=== PATIENT | female | born 1950 | race Caucasian/White ===

== ENCOUNTER 2022-05-29 13:41 | Emergency (ER) | payer OTHER ==
[~2022-05-29] VITALS: Ht 147.3 cm; Wt 72.6 kg
--- NOTE | 2022-05-29 14:15 | NUR ---
Pt arrived with c/o abd pain and uti occuring for 3 wks and is resistant to antibiotics prescribed according to her. Pt also complained about dysuria with no traces of blood, clear and tamy in color. Abn gait, weakness of the lower extremities and uses a cane. Assisted pt on the bed for further evaluation, bilateral upper side rails were raised, in low bed position. [facility] is in room for M[facility].
[2022-05-29] MEDS ORDERED: KETOROLAC TROMETHAMINE 15 MG INJ ONE (14:22)
--- NOTE | 2022-05-29 14:24 | NUR ---
Pt brought her medications in the ER, stated that after the ERMD told her to medicate herself with atb prescribed for her uti, she is having chest pain at rest, rated 9/10, radiating to the back of her throat, stated that her lips are swelling and feels a tingling sensation of the tongue. Infromed Dr. Foy about pt's concern. Seen by . EKG is performed.
[2022-05-29] MEDS ORDERED: KETOROLAC TROMETHAMINE 15 MG INJ IM ONE (14:30)
[2022-05-29 14:45] LABS: *BILIRUBIN,URIN NEGATIVE (NEGATIVE); *BLOOD, URINE NEGATIVE (NEGATIVE); *CLARITY,URINE CLEAR (CLEAR); *COLOR,URINE YELLOW (YELLOW); *KETONES,URINE NEGATIVE (NEGATIVE); *UROBILINOGEN,URINE 0.2 E.U./dl (NORMAL); LEUKOCYTE ESTERASE ,URINE TRACE (NEGATIVE); NITRITE, URINE NEGATIVE (NEGATIVE); UGLUCOSE NEGATIVE (NEGATIVE)
[2022-05-29 14:50] LABS: POTASSIUM 4.1 mmol/L (3.5-5.1)
[2022-05-29] MEDS ORDERED: TRAZ-257 PO (14:53)
[2022-05-29] MEDS ORDERED: VITAMIN D PO (14:53)
[2022-05-29] MEDS ORDERED: SUMATRIPTAN PO (14:53)
[2022-05-29] MEDS ORDERED: PANT40TA49 PO (14:53)
[2022-05-29] MEDS ORDERED: OXYB5TAB16 PO (14:53)
[2022-05-29] MEDS ORDERED: ONDA4TAB5 PO (14:53)
[2022-05-29] MEDS ORDERED: [UNRECOGNIZED DRUG - OTHER] PO (14:53)
[2022-05-29] MEDS ORDERED: DOCU250C14 PO (14:53)
[2022-05-29] MEDS ORDERED: SUCR1TAB PO (14:53)
[2022-05-29] MEDS ORDERED: BENA20TA9 PO (14:53)
[2022-05-29] MEDS ORDERED: SIMV-46 PO (14:53)
[2022-05-29] MEDS ORDERED: HYDR-3980 PO (14:53)
[2022-05-29] MEDS ORDERED: TRIA1CAP6 PO (14:53)
[2022-05-29] MEDS ORDERED: DIAZ10TA PO (14:53)
[2022-05-29 14:56] LABS: BILIRUBIN,DIRECT 0.1 mg/dL (0.0-0.2); BILIRUBIN,TOTAL 0.7 mg/dL (0.2-1.0); TOTAL PROTEIN, SERUM 7.5 g/dL (6.4-8.2)
[2022-05-29 14:57] LABS: HEMATOCRIT 42.7 % (31.2-41.9); MEAN CORPUSCULAR HEMOGLOBIN 31.4 uug (24.7-32.8); MEAN CORPUSCULAR VOLUME 92.5 fL (75.5-95.3); PLATELET COUNT (AUTO) 85 K/uL (179-408)
[2022-05-29 15:12] LABS: RBC,URINE NONE SEEN /HPF (0-3); SQUAMOUS EPITHELIAL CELL,UR FEW /HPF (NONE SEEN); WBC,URINE 0-3 /HPF (0-3)
[2022-05-29 15:13] LABS: BACTERIA,URINE NONE SEEN /HPF (NONE SEEN)
[2022-05-29 15:41] LABS: BAND % (MANUAL) 1 % (0-10); EOSINOPHILS % (MANUAL) 1 % (0-8); LYMPHOCYTES % (MANUAL) 23 % (20-40); MONOCYTES % (MANUAL) 8 % (2-10); NEUTROPHILS % (MANUAL) 67 % (42-75)
[2022-05-29] MEDS ORDERED: PHENAZOPYRIDINE HCL 100 MG TABLET ONE (16:42)
[2022-05-29] MEDS ORDERED: PHENAZOPYRIDINE HCL 100 MG TABLET PO ONE (16:45)
[2022-05-29 16:48] VITALS: BP 134/86
--- NOTE | 2022-05-29 16:48 | NUR ---
Patient discharged to home in stable condition. Written and verbal after care instructions given. Patient verbalizes understanding of instructions. Stressed follow up or return to ER for worsening s/s.
== END 2022-05-29 16:49 | disposition home or self-care (01) ==
LOC: ER 13:41
DX: G89.29 Other chronic pain (principal); R10.30 Lower abdominal pain, unspecified; R30.0 Dysuria; K21.9 Gastro-esophageal reflux disease without esophagitis; Z87.440 Personal history of urinary (tract) infections; E78.00 Pure hypercholesterolemia, unspecified; Z88.0 Allergy status to penicillin; Z88.2 Allergy status to sulfonamides
CPT/HCPCS: 99285; 74176; 80076; 80048; 81001; 83690; 85025; 87086; 84484; 36415; 93005; 96372; 85007; J1885; 70030-TC; A4663

== ENCOUNTER → 2023-03-01 | Emergency (ER) | payer OTHER ==
[~2023-03-01] VITALS: Ht 147.3 cm; Wt 62.1 kg
[~2023-03-01] MED LIST: BENA20TA9 PO; DIAZ10TA PO; DOCU250C14 PO; HYDR-3980 PO; MORPHINE SULFATE 2 MG/1 ML DISP.SYRIN IV ONE; MORPHINE SULFATE 4 MG/1 ML DISP.SYRIN ONE; ONDA4TAB5 PO; ONDANSETRON 4 MG/2 ML VIAL IV ONE; ONDANSETRON 4 MG/2 ML VIAL ONE; OXYB5TAB16 PO; PANT40TA49 PO; SIMV-46 PO; SUCR1TAB PO; SUMATRIPTAN PO; TRAZ-257 PO; TRIA1CAP6 PO; VITAMIN D PO; [UNRECOGNIZED DRUG - OTHER] PO
--- NOTE | 2023-03-01 17:29 | NUR ---
Patient resting in bed, informed of plan of care, no s/s of any distress noted awaiting MD exam.
--- NOTE | 2023-03-01 18:02 | NUR ---
ER provider at bedside for exam.
[2023-03-01 18:17] LABS: HEMATOCRIT 38.8 % (31.2-41.9); MEAN CORPUSCULAR HEMOGLOBIN 30.3 uug (24.7-32.8); MEAN CORPUSCULAR VOLUME 91.6 fL (75.5-95.3); PLATELET COUNT (AUTO) 79 K/uL (179-408)
--- NOTE | 2023-03-01 18:21 | NUR ---
#20g established in right ac, blood collected and sent to lab, bedside EKG done for MD review.
[2023-03-01 18:27] LABS: *BILIRUBIN,URIN NEGATIVE (NEGATIVE); *BLOOD, URINE NEGATIVE (NEGATIVE); *CLARITY,URINE CLEAR (CLEAR); *COLOR,URINE YELLOW (YELLOW); *KETONES,URINE NEGATIVE (NEGATIVE); *UROBILINOGEN,URINE 0.2 E.U./dl (NORMAL); LEUKOCYTE ESTERASE ,URINE NEGATIVE (NEGATIVE); NITRITE, URINE NEGATIVE (NEGATIVE); UGLUCOSE NEGATIVE (NEGATIVE)
[2023-03-01 18:28] LABS: *OCCULT BLOOD STOOL NEGATIVE (NEGATIVE)
--- NOTE | 2023-03-01 18:34 | NUR ---
Patient has been medicated as per order, going off unit to CT via wheel chair.
[2023-03-01 18:45] LABS: ALANINE AMINOTRANSFERASE 21 U/L (14-59); ALKALINE PHOSPHATASE 70 U/L (50-136); ASPARTATE AMINOTRANSFERASE 7 U/L (15-37); BILIRUBIN,DIRECT 0.1 mg/dL (0.0-0.2); BILIRUBIN,TOTAL 0.3 mg/dL (0.2-1.0); CARBON DIOXIDE 28 mmol/L (21-32); CHLORIDE 106 mmol/L (98-107); CREATININE 0.9 mg/dL (0.6-1.3); LIPASE 11 U/L (73-393); POTASSIUM 3.7 mmol/L (3.5-5.1); TOTAL PROTEIN, SERUM 6.6 g/dL (6.4-8.2); UREA NITROGEN, BLOOD 16 mg/dL (7-18)
--- NOTE | 2023-03-01 18:53 | NUR ---
Patient has returned from CT, awaiting results.
[2023-03-01 20:22] VITALS: O2SAT 100
--- NOTE | 2023-03-01 20:26 | NUR ---
DCI given to patient. Patient acknowledges & understand DCI. Patient ambulated OTD in stable condition.
== END | disposition home or self-care (01) ==
LOC: ER 16:55
DX: K62.89 Other specified diseases of anus and rectum (principal); G43.909 Migraine, unspecified, not intractable, without status migrainosus; K21.9 Gastro-esophageal reflux disease without esophagitis; E78.5 Hyperlipidemia, unspecified; R07.89 Other chest pain; Z88.0 Allergy status to penicillin; Z88.2 Allergy status to sulfonamides; Z88.1 Allergy status to other antibiotic agents; Z79.899 Other long term (current) drug therapy
CPT/HCPCS: 99285; 74176; 96374; 71045; 96375; 82270; 80076; 80048; 81003; 83690; 85025; 85651; 85730; 84484; 36415; 93005; 96376; J2405; J2270 ×2; A4663

== ENCOUNTER 2023-04-10 22:41 | Inpatient (IN) | payer OTHER ==
[~2023-04-10] VITALS: Ht 147.3 cm; Wt 65.8 kg
[~2023-04-10 22:41] MED LIST changes: -BENA20TA9 PO; -MORPHINE SULFATE 2 MG/1 ML DISP.SYRIN IV ONE; -MORPHINE SULFATE 4 MG/1 ML DISP.SYRIN ONE; -ONDANSETRON 4 MG/2 ML VIAL IV ONE; -ONDANSETRON 4 MG/2 ML VIAL ONE; -SUCR1TAB PO; -TRIA1CAP6 PO; -[UNRECOGNIZED DRUG - OTHER] PO
[2023-04-10] MEDS ORDERED: ASPIRIN 81 MG TAB.CHEW PO ONE (23:00)
[2023-04-10] MEDS ORDERED: HYDROMORPHONE HCL 2 MG TABLET PO ONE (23:15)
[2023-04-10] MEDS ORDERED: ASPIRIN 81 MG TAB.CHEW ONE (23:26)
[2023-04-10] MEDS ORDERED: HYDROMORPHONE HCL 2 MG TABLET ONE (23:26)
[2023-04-10 23:28] LABS: BASOPHILS % (AUTO) 0.3 % (0.0-2.0); DIFFERENTIAL COMMENT 1; EOSINOPHILS % (AUTO) 0.3 % (0.0-7.0); HEMATOCRIT 38.6 % (31.2-41.9); LYMPHOCYTES # (AUTO) 1.1 K/uL (0.8-4.8); LYMPHOCYTES % (AUTO) 12.7 % (20.5-51.5); MEAN CORPUSCULAR HEMOGLOBIN 31.3 uug (24.7-32.8); MEAN CORPUSCULAR HGB CONC 34 g/dL (32.3-35.6); MEAN CORPUSCULAR VOLUME 92.9 fL (75.5-95.3); MONOCYTES # (AUTO) 0.6 K/uL (0.1-1.30); MONOCYTES % (AUTO) 6.8 % (0.0-11.0); NEUTROPHILS # (AUTO) 6.7 K/uL (1.8-8.9); NEUTROPHILS % (AUTO) 79.9 % (38.5-71.5); PLATELET COUNT (AUTO) 95 K/uL (179-408); RED BLOOD CELL COUNT(AUTO) 4.16 MIL/uL (3.63-4.92); RED CELL DISTRIBUTION WIDTH 13.7 % (12.3-17.7); WHITE BLOOD COUNT (AUTO) 8.4 K/uL (3.8-11.8)
[2023-04-10 23:36] LABS: CALCIUM 9.4 mg/dL (8.5-10.1); CARBON DIOXIDE 27 mmol/L (21-32); CHLORIDE 103 mmol/L (98-107); CREATININE 0.9 mg/dL (0.6-1.3); GLUCOSE 127 mg/dL (74-106); POTASSIUM 4.7 mmol/L (3.5-5.1); SODIUM SERUM 138 mmol/L (136-145); UREA NITROGEN, BLOOD 20 mg/dL (7-18)
[2023-04-10 23:52] LABS: ALANINE AMINOTRANSFERASE 61 U/L (14-59); ALBUMIN 3.6 g/dL (3.4-5.0); ALKALINE PHOSPHATASE 161 U/L (50-136); ASPARTATE AMINOTRANSFERASE 137 U/L (15-37); BILIRUBIN,DIRECT < 0.1 mg/dL (0.0-0.2); BILIRUBIN,TOTAL 0.7 mg/dL (0.2-1.0); NT-PRO BNP 849 pg/mL (0-125); TOTAL PROTEIN, SERUM 7.4 g/dL (6.4-8.2)
[2023-04-11 00:48] LABS: EOSINOPHILS % (MANUAL) 1 % (0-8); LYMPHOCYTES % (MANUAL) 13 % (20-40); MONOCYTES % (MANUAL) 4 % (2-10); NEUTROPHILS % (MANUAL) 82 % (42-75); PLATELET ESTIMATE MARKED DECREASED
[2023-04-11] MEDS ORDERED: HYDROMORPHONE HCL 2 MG TABLET PO ONE (01:00)
[2023-04-11] MEDS ORDERED: HYDROMORPHONE HCL 2 MG TABLET ONE (01:06)
[2023-04-11] MEDS ORDERED: ENOXAPARIN SODIUM 80 MG/0.8 ML DISP.SYRIN SQ ONE ×2 (01:45→01:48)
[2023-04-11] MEDS ORDERED: FUROSEMIDE 20 MG/2 ML VIAL ONE (02:22)
[2023-04-11] MEDS ORDERED: NITROGLYCERIN OINT 1 GM PACKET TP ONE ×2 (02:22→02:30)
[2023-04-11] MEDS ORDERED: FUROSEMIDE 20 MG/2 ML VIAL IV ONE (02:30)
[2023-04-11] MEDS ORDERED: LORAZEPAM 0.5 MG TABLET ONE (04:36)
[2023-04-11] MEDS ORDERED: LORAZEPAM 0.5 MG TABLET PO ONE (04:45)
[2023-04-11] MEDS: PANTOPRAZOLE SODIUM 40 MG TABLET.DR PO SCH ×2 (07:00→08:39)
[2023-04-11] MEDS ORDERED: MAGNESIUM HYDROXIDE 30 ML LIQUID UDC PO PRN (07:00)
[2023-04-11] MEDS ORDERED: REMEDY ESSENTIAL ZINC PASTE 113 GM TP PRN (07:00)
[2023-04-11] MEDS: ENOXAPARIN SODIUM 40 MG/0.4 ML DISP.SYRIN SQ SCH ×2 (07:00→08:38)
[2023-04-11] MEDS ORDERED: IV NORMAL SALINE 250 ML IV ONE (07:14)
[2023-04-11] MEDS ORDERED: IOHEXOL 350 100 ML INFUS..BTL ONE (07:14)
[2023-04-11] MEDS: ACETAMINOPHEN 325 MG TABLET PO PRN ×2 (07:31→09:03)
[2023-04-11] MEDS ORDERED: ENOXAPARIN SODIUM 40 MG/0.4 ML DISP.SYRIN SQ ONE (08:36)
[2023-04-11] MEDS ORDERED: ACETAMINOPHEN 325 MG TABLET ONE (08:37)
[2023-04-11] MEDS ORDERED: PANTOPRAZOLE SODIUM 40 MG TABLET.DR PO ONE (08:37)
[2023-04-11] MEDS ORDERED: FUROSEMIDE 40 MG/4 ML VIAL ONE (08:38)
[2023-04-11] MEDS ORDERED: FUROSEMIDE 40 MG/4 ML VIAL IV SCH (09:00)
[2023-04-11] MEDS: ASPIRIN 81 MG TAB.CHEW PO SCH (09:02)
[2023-04-11] MEDS ORDERED: DOCUSATE SODIUM 250 MG CAPSULE PO PRN (11:45)
[2023-04-11] MEDS ORDERED: HYDROCODONE/APAP 10-325 MG TABLET ONE (12:16)
[2023-04-11] MEDS: HYDROCODONE/APAP 10-325 MG TABLET PO PRN ×2 (12:21→22:50)
[2023-04-11] MEDS: OXYBUTYNIN CHLORIDE 5 MG TABLET PO SCH (16:34)
[2023-04-11] MEDS ORDERED: OXYBUTYNIN CHLORIDE 5 MG TABLET ONE (16:36)
[2023-04-11] MEDS ORDERED: ONDANSETRON 4 MG/2 ML VIAL IV PRN (17:30)
[2023-04-11] MEDS ORDERED: CEFTRIAXONE 1 G in IV DEXTROSE 5% 50 ML IV SCH (17:30)
[2023-04-11] MEDS ORDERED: ONDANSETRON 4 MG/2 ML VIAL ONE (17:35)
[2023-04-11] MEDS ORDERED: CEFTRIAXONE /D5W 50ML IVPB **ER PYXIS IV ONE (17:36)
[2023-04-11] MEDS: ONDANSETRON 4 MG/2 ML VIAL IV PRN (17:43)
[2023-04-11 21:23] VITALS: BP 145/97; TEMP 98.1; O2SAT 98
[2023-04-11] MEDS: SIMVASTATIN 20 MG TABLET PO SCH (22:41)
[2023-04-11] MEDS: TRAZODONE 100 MG TABLET PO SCH (22:41)
[2023-04-12 00:15] VITALS: BP 130/73; TEMP 98.1; O2SAT 96
[2023-04-12] MEDS: DIAZEPAM 10 MG TABLET PO PRN ×2 (00:38→11:50)
[2023-04-12 04:20] VITALS: BP 119/66; TEMP 97.7; O2SAT 92
[2023-04-12 07:20] LABS: BASOPHILS % (AUTO) 0.4 % (0.0-2.0); EOSINOPHILS % (AUTO) 0.9 % (0.0-7.0); HEMATOCRIT 36.9 % (31.2-41.9); HEMOGLOBIN 12.5 g/dL (10.9-14.3); LYMPHOCYTES # (AUTO) 1.1 K/uL (0.8-4.8); LYMPHOCYTES % (AUTO) 19.9 % (20.5-51.5); MEAN CORPUSCULAR HEMOGLOBIN 31.3 uug (24.7-32.8); MEAN CORPUSCULAR HGB CONC 34 g/dL (32.3-35.6); MEAN CORPUSCULAR VOLUME 92.2 fL (75.5-95.3); MONOCYTES # (AUTO) 0.5 K/uL (0.1-1.30); MONOCYTES % (AUTO) 8.4 % (0.0-11.0); NEUTROPHILS # (AUTO) 3.8 K/uL (1.8-8.9); NEUTROPHILS % (AUTO) 70.4 % (38.5-71.5); PLATELET COUNT (AUTO) 87 K/uL (179-408); RED CELL DISTRIBUTION WIDTH 13.9 % (12.3-17.7); WHITE BLOOD COUNT (AUTO) 5.4 K/uL (3.8-11.8)
[2023-04-12 07:33] LABS: DIFFERENTIAL COMMENT 1
[2023-04-12 07:35] LABS: ALANINE AMINOTRANSFERASE 58 U/L (14-59); ALBUMIN 3.4 g/dL (3.4-5.0); ALKALINE PHOSPHATASE 138 U/L (50-136); ASPARTATE AMINOTRANSFERASE 30 U/L (15-37); BILIRUBIN,DIRECT 0.1 mg/dL (0.0-0.2); BILIRUBIN,TOTAL 0.5 mg/dL (0.2-1.0); CALCIUM 9.7 mg/dL (8.5-10.1); CARBON DIOXIDE 29 mmol/L (21-32); CHLORIDE 100 mmol/L (98-107); GLUCOSE 106 mg/dL (74-106); MAGNESIUM 1.7 mg/dL (1.8-2.4); PHOSPHOROUS 4.7 mg/dL (2.5-4.9); POTASSIUM 3.2 mmol/L (3.5-5.1); SODIUM SERUM 140 mmol/L (136-145); TOTAL PROTEIN, SERUM 6.8 g/dL (6.4-8.2); UREA NITROGEN, BLOOD 18 mg/dL (7-18)
[2023-04-12] MEDS: OXYBUTYNIN CHLORIDE 5 MG TABLET PO SCH ×2 (08:22→17:19)
[2023-04-12] MEDS: HYDROCODONE/APAP 10-325 MG TABLET PO PRN ×2 (08:24→17:21)
[2023-04-12] MEDS ORDERED: ENOXAPARIN SODIUM 40 MG/0.4 ML DISP.SYRIN SQ SCH (09:00)
[2023-04-12] MEDS ORDERED: PANTOPRAZOLE SODIUM 40 MG TABLET.DR PO SCH (09:00)
[2023-04-12] MEDS ORDERED: POTASSIUM CHLORIDE 50 ML IV SCH (09:00)
[2023-04-12] MEDS ORDERED: POTASSIUM CHLORIDE 20 MEQ POWDER PACKET GT ONE (09:00)
[2023-04-12] MEDS ORDERED: POTASSIUM CHLORIDE 20 MEQ TAB.PRT.SR PO ONE ×2 (09:30→12:00)
[2023-04-12] MEDS: MAGNESIUM SULFATE/D5W 100 ML IV SCH ×2 (10:23→11:43)
[2023-04-12] MEDS: SUMATRIPTAN SUCCINATE 50 MG TABLET PO PRN (10:35)
[2023-04-12] MEDS: CEphaleXIN 500 MG CAPSULE PO SCH ×3 (11:43→23:12)
[2023-04-12 11:49] VITALS: BP 118/77; TEMP 97.8; O2SAT 96
[2023-04-12] MEDS ORDERED: LOSA100T31 PO (14:30)
[2023-04-12] MEDS ORDERED: AMLO-212 PO (14:30)
[2023-04-12] MEDS: ASPIRIN 81 MG TAB.CHEW PO SCH (15:26)
[2023-04-12 15:45] VITALS: BP 156/70; TEMP 98.6; O2SAT 94
[2023-04-12] MEDS: AMLODIPINE 5 MG TABLET PO SCH (17:21)
[2023-04-12] MEDS: SIMVASTATIN 20 MG TABLET PO SCH (20:01)
[2023-04-12] MEDS: TRAZODONE 100 MG TABLET PO SCH (20:01)
[2023-04-12] MEDS: ONDANSETRON 4 MG/2 ML VIAL IV PRN (20:08)
[2023-04-12 21:23] VITALS: BP 137/57; TEMP 98.2
[2023-04-13] MEDS: DIAZEPAM 10 MG TABLET PO PRN ×2 (00:28→13:21)
[2023-04-13 05:23] VITALS: BP 132/67; TEMP 98.2; O2SAT 99
[2023-04-13] MEDS: CEphaleXIN 500 MG CAPSULE PO SCH ×3 (05:25→17:21)
[2023-04-13] MEDS: PANTOPRAZOLE SODIUM 40 MG TABLET.DR PO SCH (06:02)
[2023-04-13 07:33] LABS: BASOPHILS % (AUTO) 0.4 % (0.0-2.0); EOSINOPHILS # (AUTO) 0.1 K/uL (0.0-0.7); EOSINOPHILS % (AUTO) 1.1 % (0.0-7.0); HEMOGLOBIN 12.5 g/dL (10.9-14.3); LYMPHOCYTES # (AUTO) 1.4 K/uL (0.8-4.8); LYMPHOCYTES % (AUTO) 26.4 % (20.5-51.5); MEAN CORPUSCULAR HEMOGLOBIN 31.4 uug (24.7-32.8); MEAN CORPUSCULAR HGB CONC 34 g/dL (32.3-35.6); MEAN CORPUSCULAR VOLUME 92.8 fL (75.5-95.3); MONOCYTES # (AUTO) 0.5 K/uL (0.1-1.30); NEUTROPHILS # (AUTO) 3.4 K/uL (1.8-8.9); NEUTROPHILS % (AUTO) 63.1 % (38.5-71.5); PLATELET COUNT (AUTO) 91 K/uL (179-408); RED BLOOD CELL COUNT(AUTO) 3.98 MIL/uL (3.63-4.92); RED CELL DISTRIBUTION WIDTH 13.9 % (12.3-17.7); WHITE BLOOD COUNT (AUTO) 5.4 K/uL (3.8-11.8)
[2023-04-13 07:39] LABS: DIFFERENTIAL COMMENT 1
[2023-04-13 07:45] LABS: CALCIUM 9.3 mg/dL (8.5-10.1); CARBON DIOXIDE 29 mmol/L (21-32); CHLORIDE 105 mmol/L (98-107); CREATININE 1.1 mg/dL (0.6-1.3); GLUCOSE 134 mg/dL (74-106); MAGNESIUM 1.9 mg/dL (1.8-2.4); PHOSPHOROUS 3.5 mg/dL (2.5-4.9); POTASSIUM 4.1 mmol/L (3.5-5.1); SODIUM SERUM 142 mmol/L (136-145); UREA NITROGEN, BLOOD 22 mg/dL (7-18)
[2023-04-13] MEDS: OXYBUTYNIN CHLORIDE 5 MG TABLET PO SCH ×2 (08:48→17:21)
[2023-04-13] MEDS: AMLODIPINE 5 MG TABLET PO SCH ×2 (08:48→17:21)
[2023-04-13] MEDS: ASPIRIN 81 MG TAB.CHEW PO SCH (08:48)
[2023-04-13] MEDS: HYDROCODONE/APAP 10-325 MG TABLET PO PRN (08:49)
[2023-04-13] MEDS ORDERED: LOSARTAN POTASSIUM 50 MG TABLET PO SCH (09:00)
[2023-04-13] MEDS: SUMATRIPTAN SUCCINATE 50 MG TABLET PO PRN (11:09)
[2023-04-13 11:56] VITALS: BP 156/82; TEMP 97.5; O2SAT 97
[2023-04-13] MEDS ORDERED: PANT40TA49 PO (12:23)
[2023-04-13] MEDS ORDERED: CEPH500T PO (12:25)
[2023-04-13 15:54] VITALS: BP 165/93; TEMP 98; O2SAT 98
[2023-04-13 18:00] VITALS: BP 159/76
== END 2023-04-13 18:42 | disposition home or self-care (01) | DRG 193 ==
LOC: ER 22:42 → TRANSITION 04-11 09:10 → TELE3 04-11 20:46 → MEDSURG3 04-12 10:00
PROVIDERS: ADMIT Nurse Practitioner Acute Care; ATTEND Nurse Practitioner Acute Care
DX: J15.9 Unspecified bacterial pneumonia (principal); I50.33 Acute on chronic diastolic (congestive) heart failure; K21.9 Gastro-esophageal reflux disease without esophagitis; I11.0 Hypertensive heart disease with heart failure; E66.9 Obesity, unspecified; K83.8 Other specified diseases of biliary tract; E78.00 Pure hypercholesterolemia, unspecified; E04.1 Nontoxic single thyroid nodule; G47.00 Insomnia, unspecified; G89.4 Chronic pain syndrome; K59.00 Constipation, unspecified; Z88.0 Allergy status to penicillin; Z88.2 Allergy status to sulfonamides; E78.5 Hyperlipidemia, unspecified; R59.0 Localized enlarged lymph nodes; R74.01 Elevation of levels of liver transaminase levels; R10.9 Unspecified abdominal pain; Z68.30 Body mass index [BMI] 30.0-30.9, adult
CPT/HCPCS: 36415; 70030-TC; 71045; 71275; 83690; 83735; 84100; 84484; 85025; 85730; 93005; 93307; A4663; G0378; J0696; J1650; J1940; J2405; J3475; Q9967

== ENCOUNTER 2023-04-22 12:39 | Emergency (ER) | payer OTHER ==
[~2023-04-22] VITALS: Ht 149.9 cm; Wt 66.2 kg
[~2023-04-22 12:39] MED LIST changes: +AMLO-212 PO; +CEPH500T PO; +LOSA100T31 PO; -VITAMIN D PO
[2023-04-22] MEDS ORDERED: MORPHINE SULFATE 2 MG/1 ML DISP.SYRIN IV ONE (13:15)
[2023-04-22] MEDS ORDERED: MORPHINE SULFATE 4 MG/1 ML DISP.SYRIN ONE (13:40)
[2023-04-22 13:53] LABS: BASOPHILS % (AUTO) 0.1 % (0.0-2.0); EOSINOPHILS % (AUTO) 0.2 % (0.0-7.0); HEMOGLOBIN 12.9 g/dL (10.9-14.3); LYMPHOCYTES % (AUTO) 9.5 % (20.5-51.5); MEAN CORPUSCULAR HEMOGLOBIN 31.4 uug (24.7-32.8); MEAN CORPUSCULAR HGB CONC 34 g/dL (32.3-35.6); MEAN CORPUSCULAR VOLUME 92.5 fL (75.5-95.3); MONOCYTES # (AUTO) 0.4 K/uL (0.1-1.30); MONOCYTES % (AUTO) 4.1 % (0.0-11.0); NEUTROPHILS # (AUTO) 9.3 K/uL (1.8-8.9); NEUTROPHILS % (AUTO) 86.1 % (38.5-71.5); PLATELET COUNT (AUTO) 87 K/uL (179-408); RED BLOOD CELL COUNT(AUTO) 4.11 MIL/uL (3.63-4.92); RED CELL DISTRIBUTION WIDTH 13.8 % (12.3-17.7); WHITE BLOOD COUNT (AUTO) 10.8 K/uL (3.8-11.8)
[2023-04-22] MEDS ORDERED: IV NORMAL SALINE 250 ML IV ONE ×2 (14:15→15:31)
[2023-04-22] MEDS ORDERED: IOHEXOL 300MG/ML 100 ML INFUS..BTL ONE ×2 (14:15→15:30)
[2023-04-22] MEDS ORDERED: SWABABLE VALVE TRANSFER SET EA MC ONE ×2 (14:15→15:31)
[2023-04-22 14:19] LABS: ALANINE AMINOTRANSFERASE 17 U/L (14-59); ALBUMIN 3.8 g/dL (3.4-5.0); ALKALINE PHOSPHATASE 87 U/L (50-136); ASPARTATE AMINOTRANSFERASE 7 U/L (15-37); BILIRUBIN,DIRECT 0.1 mg/dL (0.0-0.2); BILIRUBIN,TOTAL 0.6 mg/dL (0.2-1.0); CALCIUM 9.6 mg/dL (8.5-10.1); CARBON DIOXIDE 26 mmol/L (21-32); CHLORIDE 104 mmol/L (98-107); GLUCOSE 124 mg/dL (74-106); LIPASE 17 U/L (73-393); NT-PRO BNP 401 pg/mL (0-125); POTASSIUM 3.5 mmol/L (3.5-5.1); SODIUM SERUM 141 mmol/L (136-145); TOTAL PROTEIN, SERUM 6.8 g/dL (6.4-8.2); UREA NITROGEN, BLOOD 19 mg/dL (7-18)
[2023-04-22] MEDS ORDERED: MORPHINE SULFATE 4 MG/1 ML DISP.SYRIN IV ONE (15:45)
[2023-04-22 16:20] LABS: *BILIRUBIN,URIN NEGATIVE (NEGATIVE); *CLARITY,URINE CLEAR (CLEAR); *COLOR,URINE YELLOW (YELLOW); *KETONES,URINE NEGATIVE (NEGATIVE); *PROTEIN,URINE NEGATIVE (NEGATIVE); *UROBILINOGEN,URINE 0.2 E.U./dl (NORMAL); LEUKOCYTE ESTERASE ,URINE NEGATIVE (NEGATIVE); NITRITE, URINE NEGATIVE (NEGATIVE); PH,URINE 7.5 (5.0-8.0); UGLUCOSE NEGATIVE (NEGATIVE)
[2023-04-22 16:24] LABS: *BLOOD, URINE TRACE (NEGATIVE)
[2023-04-22 16:40] LABS: BACTERIA,URINE FEW /HPF (NONE SEEN); RBC,URINE 0-3 /HPF (0-3); SQUAMOUS EPITHELIAL CELL,UR MODERATE /HPF (NONE SEEN); WBC,URINE NONE SEEN /HPF (0-3)
[2023-04-22 16:45] VITALS: O2SAT 98
[2023-04-22] MEDS ORDERED: DICY10CA13 PO (16:54)
== END 2023-04-22 17:32 | disposition home or self-care (01) ==
LOC: ER 12:39
DX: S30.1XXA Contusion of abdominal wall, initial encounter (principal); R10.31 Right lower quadrant pain; R07.89 Other chest pain; G43.909 Migraine, unspecified, not intractable, without status migrainosus; I50.9 Heart failure, unspecified; K21.9 Gastro-esophageal reflux disease without esophagitis; E78.5 Hyperlipidemia, unspecified; Z88.0 Allergy status to penicillin; Z88.2 Allergy status to sulfonamides; Z88.1 Allergy status to other antibiotic agents; Z79.899 Other long term (current) drug therapy; X58.XXXA Exposure to other specified factors, initial encounter; Y93.89 Activity, other specified; Y92.89 Other specified places as the place of occurrence of the external cause; Y99.8 Other external cause status
CPT/HCPCS: 99285; 74177; 96374; 71045; 80076; 80048; 81001; 83880; 83690; 85025; 85610; 84484 ×2; 36415; 93005; 96376; Q9967 ×2; J2270; A4663

== ENCOUNTER 2023-06-22 13:00 | Emergency (ER) | payer OTHER ==
[~2023-06-22] VITALS: Ht 149.9 cm; Wt 62.1 kg
[~2023-06-22 13:00] MED LIST changes: +DICY10CA13 PO
[2023-06-22] MEDS ORDERED: MORPHINE SULFATE 2 MG/1 ML DISP.SYRIN IV ONE ×2 (13:30→15:45)
[2023-06-22] MEDS ORDERED: ONDANSETRON 4 MG/2 ML VIAL IV ONE (13:30)
[2023-06-22] MEDS ORDERED: IV NORMAL SALINE 1000 ML BAG IV ONE (13:30)
[2023-06-22] MEDS ORDERED: MORPHINE SULFATE 4 MG/1 ML DISP.SYRIN ONE (13:40)
[2023-06-22] MEDS ORDERED: ONDANSETRON 4 MG/2 ML VIAL ONE (13:40)
[2023-06-22 13:42] LABS: BASOPHILS # (AUTO) 0.2 K/UL (0.0-0.2); BASOPHILS % (AUTO) 2.8 % (0.0-2.0); EOSINOPHILS % (AUTO) 0.6 % (0.0-7.0); HEMATOCRIT 37.9 % (31.2-41.9); HEMOGLOBIN 12.6 g/dL (10.9-14.3); LYMPHOCYTES # (AUTO) 0.8 K/uL (0.8-4.8); LYMPHOCYTES % (AUTO) 11.1 % (20.5-51.5); MEAN CORPUSCULAR HEMOGLOBIN 30.7 uug (24.7-32.8); MEAN CORPUSCULAR HGB CONC 33 g/dL (32.3-35.6); MEAN CORPUSCULAR VOLUME 92.3 fL (75.5-95.3); MONOCYTES # (AUTO) 0.3 K/uL (0.1-1.30); MONOCYTES % (AUTO) 4.2 % (0.0-11.0); NEUTROPHILS # (AUTO) 5.9 K/uL (1.8-8.9); NEUTROPHILS % (AUTO) 81.3 % (38.5-71.5); PLATELET COUNT (AUTO) 103 K/uL (179-408); RED BLOOD CELL COUNT(AUTO) 4.11 MIL/uL (3.63-4.92); RED CELL DISTRIBUTION WIDTH 13.6 % (12.3-17.7); WHITE BLOOD COUNT (AUTO) 7.3 K/uL (3.8-11.8)
[2023-06-22 13:45] LABS: DIFFERENTIAL COMMENT 1
[2023-06-22 13:49] LABS: CALCIUM 9.7 mg/dL (8.5-10.1); CREATININE 0.9 mg/dL (0.6-1.3); POTASSIUM 3.6 mmol/L (3.5-5.1)
[2023-06-22 13:54] LABS: ALBUMIN 3.4 g/dL (3.4-5.0); BILIRUBIN,DIRECT 0.1 mg/dL (0.0-0.2); BILIRUBIN,TOTAL 0.4 mg/dL (0.2-1.0); TOTAL PROTEIN, SERUM 6.8 g/dL (6.4-8.2)
[2023-06-22] MEDS ORDERED: ONDA4TAB5 PO (13:57)
[2023-06-22] MEDS ORDERED: SWABABLE VALVE TRANSFER SET EA MC ONE (14:16)
[2023-06-22] MEDS ORDERED: IOHEXOL 300MG/ML 100 ML INFUS..BTL ONE (14:16)
[2023-06-22] MEDS ORDERED: IV NORMAL SALINE 250 ML IV ONE (14:16)
[2023-06-22] MEDS ORDERED: MORPHINE SULFATE 2 MG/1 ML DISP.SYRIN ONE (15:35)
[2023-06-22 17:38] VITALS: BP 129/78; O2SAT 99
== END 2023-06-22 16:00 | disposition home or self-care (01) ==
LOC: ER 13:00
DX: K64.4 Residual hemorrhoidal skin tags (principal); G89.29 Other chronic pain; R10.84 Generalized abdominal pain; R11.2 Nausea with vomiting, unspecified; I11.0 Hypertensive heart disease with heart failure; I50.9 Heart failure, unspecified; E78.5 Hyperlipidemia, unspecified; G43.909 Migraine, unspecified, not intractable, without status migrainosus; K21.9 Gastro-esophageal reflux disease without esophagitis; Z88.0 Allergy status to penicillin; Z88.1 Allergy status to other antibiotic agents; Z88.2 Allergy status to sulfonamides; Z79.2 Long term (current) use of antibiotics; Z79.899 Other long term (current) drug therapy
CPT/HCPCS: 99285; 74177; 96374; 96361; 96375; 80076; 80048; 83690; 85025; 36415; 96376; J2405; Q9967; J2270 ×2; J7040; A4606; A4663

== ENCOUNTER 2024-04-02 21:08 | Emergency (ER) | payer BC, OTHER ==
[~2024-04-02] VITALS: Ht 144.8 cm; Wt 63.5 kg
[2024-04-02 21:54] LABS: BASOPHILS % (AUTO) 0.3 % (0.0-2.0); EOSINOPHILS % (AUTO) 0.4 % (0.0-7.0); HEMATOCRIT 39.1 % (31.2-41.9); HEMOGLOBIN 13.2 g/dL (10.9-14.3); LYMPHOCYTES # (AUTO) 1.2 K/uL (0.8-4.8); LYMPHOCYTES % (AUTO) 13.3 % (20.5-51.5); MEAN CORPUSCULAR HEMOGLOBIN 30.9 uug (24.7-32.8); MEAN CORPUSCULAR HGB CONC 34 g/dL (32.3-35.6); MEAN CORPUSCULAR VOLUME 91.7 fL (75.5-95.3); MONOCYTES # (AUTO) 0.6 K/uL (0.1-1.30); MONOCYTES % (AUTO) 6.7 % (0.0-11.0); NEUTROPHILS # (AUTO) 6.8 K/uL (1.8-8.9); NEUTROPHILS % (AUTO) 79.3 % (38.5-71.5); PLATELET COUNT (AUTO) 78 K/uL (179-408); RED BLOOD CELL COUNT(AUTO) 4.26 MIL/uL (3.63-4.92); RED CELL DISTRIBUTION WIDTH 13.6 % (12.3-17.7); WHITE BLOOD COUNT (AUTO) 8.6 K/uL (3.8-11.8)
[2024-04-02] MEDS ORDERED: MORPHINE SULFATE 4 MG/1 ML DISP.SYRIN IV ONE (22:00)
[2024-04-02] MEDS ORDERED: ONDANSETRON 4 MG/2 ML VIAL IV ONE (22:00)
[2024-04-02] MEDS ORDERED: ONDANSETRON ODT 4 MG TAB.RAPDIS ONE (22:01)
[2024-04-02] MEDS ORDERED: HYDROCODONE/APAP 10-325 MG TABLET ONE (22:01)
[2024-04-02] MEDS: ONDANSETRON ODT 4 MG TAB.RAPDIS SL ONE (22:04)
[2024-04-02] MEDS: HYDROCODONE/APAP 10-325 MG TABLET PO ONE (22:04)
[2024-04-02 22:19] LABS: DIFFERENTIAL COMMENT 1
[2024-04-02 22:22] LABS: *BILIRUBIN,URIN NEGATIVE (NEGATIVE); *BLOOD, URINE 3+ (NEGATIVE); *CLARITY,URINE CLOUDY (CLEAR); *COLOR,URINE YELLOW (YELLOW); *KETONES,URINE NEGATIVE (NEGATIVE); *PROTEIN,URINE 2+ (NEGATIVE); *UROBILINOGEN,URINE 0.2 E.U./dl (NORMAL); LEUKOCYTE ESTERASE ,URINE 2+ (NEGATIVE); NITRITE, URINE POSITIVE (NEGATIVE); UGLUCOSE NEGATIVE (NEGATIVE)
[2024-04-02 22:27] LABS: CALCIUM 9.1 mg/dL (8.5-10.1); CARBON DIOXIDE 30 mmol/L (21-32); CHLORIDE 105 mmol/L (98-107); CREATININE 0.9 mg/dL (0.6-1.3); GLUCOSE 124 mg/dL (74-106); SODIUM SERUM 143 mmol/L (136-145); UREA NITROGEN, BLOOD 13 mg/dL (7-18)
[2024-04-02 22:31] LABS: RBC,URINE 20-50 /HPF (0-3); WBC,URINE 50-80 /HPF (0-3)
[2024-04-02 22:32] LABS: BACTERIA,URINE MANY /HPF (NONE SEEN); SQUAMOUS EPITHELIAL CELL,UR FEW /HPF (NONE SEEN)
[2024-04-02 22:44] LABS: ALANINE AMINOTRANSFERASE 21 U/L (14-59); ALBUMIN 3.4 g/dL (3.4-5.0); ALKALINE PHOSPHATASE 75 U/L (50-136); ASPARTATE AMINOTRANSFERASE 8 U/L (15-37); BILIRUBIN,DIRECT 0.2 mg/dL (0.0-0.2); BILIRUBIN,TOTAL 0.7 mg/dL (0.2-1.0); LIPASE 12 U/L (16-77); TOTAL PROTEIN, SERUM 6.7 g/dL (6.4-8.2)
[2024-04-02 22:49] LABS: LYMPHOCYTES % (MANUAL) 16 % (20-40); MONOCYTES % (MANUAL) 6 % (2-10); NEUTROPHILS % (MANUAL) 78 % (42-75)
[2024-04-02 22:50] LABS: ANISOCYTOSIS 1+; PLATELET ESTIMATE MODERATELY DECREASED
[2024-04-02] MEDS ORDERED: SUMATRIPTAN SUCCINATE 6 MG/0.5 ML VIAL SQ ONE (23:15)
[2024-04-02] MEDS ORDERED: CEFEPIME HCL 1 G VIAL ONE (23:22)
[2024-04-02] MEDS: CEFEPIME HCL 2 G in IV DEXTROSE 5% 50 ML IV ONE (23:42)
[2024-04-02] MEDS: SUMATRIPTAN SUCCINATE 50 MG TABLET PO ONE (23:43)
[2024-04-02] MEDS: MORPHINE SULFATE 4 MG/1 ML DISP.SYRIN IV ONE (23:44)
[2024-04-03] MEDS ORDERED: KETOROLAC TROMETHAMINE 15 MG INJ ONE (01:17)
[2024-04-03] MEDS ORDERED: METOCLOPRAMIDE HCL 10 MG/2 ML VIAL ONE (01:17)
[2024-04-03] MEDS: KETOROLAC TROMETHAMINE 15 MG INJ IVP ONE (01:21)
[2024-04-03] MEDS: METOCLOPRAMIDE HCL 10 MG/2 ML VIAL IV ONE (01:21)
[2024-04-03] MEDS ORDERED: MORPHINE SULFATE 4 MG/1 ML DISP.SYRIN ONE (03:14)
[2024-04-03] MEDS: MORPHINE SULFATE 4 MG/1 ML DISP.SYRIN IV ONE (03:17)
[2024-04-03 03:19] VITALS: O2SAT 97
== END 2024-04-03 03:53 | disposition short-term general hospital (02) ==
LOC: ER 21:15
DX: N12 Tubulo-interstitial nephritis, not specified as acute or chronic (principal); R10.9 Unspecified abdominal pain; R11.0 Nausea; G89.29 Other chronic pain; R07.89 Other chest pain; G43.909 Migraine, unspecified, not intractable, without status migrainosus; I11.0 Hypertensive heart disease with heart failure; I50.9 Heart failure, unspecified; E78.5 Hyperlipidemia, unspecified; K21.9 Gastro-esophageal reflux disease without esophagitis; E78.00 Pure hypercholesterolemia, unspecified; Z79.891 Long term (current) use of opiate analgesic; Z79.899 Other long term (current) drug therapy; Z20.822 Contact with and (suspected) exposure to COVID-19; Z60.2 Problems related to living alone; Z88.0 Allergy status to penicillin; Z88.2 Allergy status to sulfonamides
CPT/HCPCS: 99285; 70450; 96365; 96375 ×2; 80076; 80048; 81001; 83880; 83690; 85025; 87040; 84484; 36415; 93005; 71250; 74176; 87086; 87426; 96376; 85007; J0692; J2270 ×2; J1885; J2765; 70030-TC; A4606; A4663; Q0162

== ENCOUNTER 2024-11-19 20:00 | Emergency (ER) | payer BC, OTHER ==
[~2024-11-19] VITALS: Ht 157.5 cm; Wt 66.7 kg
[2024-11-19] MEDS ORDERED: HYDROCODONE/APAP 10-325 MG TABLET PO ONE (21:00)
[2024-11-19] MEDS: HYDROCODONE/APAP 5-325MG TABLET PO ONE (21:00)
[2024-11-19 21:09] LABS: BASOPHILS % (AUTO) 0.5 % (0.0-2.0); EOSINOPHILS # (AUTO) 0.1 K/uL (0.0-0.7); EOSINOPHILS % (AUTO) 1.2 % (0.0-7.0); HEMOGLOBIN 13.3 g/dL (10.9-14.3); LYMPHOCYTES # (AUTO) 1.6 K/uL (0.8-4.8); LYMPHOCYTES % (AUTO) 28.6 % (20.5-51.5); MEAN CORPUSCULAR HEMOGLOBIN 30.9 uug (24.7-32.8); MEAN CORPUSCULAR HGB CONC 34 g/dL (32.3-35.6); MEAN CORPUSCULAR VOLUME 90.8 fL (75.5-95.3); MONOCYTES # (AUTO) 0.4 K/uL (0.1-1.30); NEUTROPHILS # (AUTO) 3.6 K/uL (1.8-8.9); NEUTROPHILS % (AUTO) 62.7 % (38.5-71.5); PLATELET COUNT (AUTO) 90 K/uL (179-408); RED BLOOD CELL COUNT(AUTO) 4.29 MIL/uL (3.63-4.92); WHITE BLOOD COUNT (AUTO) 5.7 K/uL (3.8-11.8)
[2024-11-19 21:16] LABS: CALCIUM 9.1 mg/dL (8.5-10.1); CARBON DIOXIDE 25 mmol/L (21-32); CHLORIDE 107 mmol/L (98-107); GLUCOSE 131 mg/dL (74-106); POTASSIUM 3.6 mmol/L (3.5-5.1); SODIUM SERUM 143 mmol/L (136-145); UREA NITROGEN, BLOOD 18 mg/dL (7-18)
[2024-11-19 21:22] LABS: ALANINE AMINOTRANSFERASE 22 U/L (14-59); ALBUMIN 3.5 g/dL (3.4-5.0); ALKALINE PHOSPHATASE 66 U/L (50-136); BILIRUBIN,DIRECT 0.1 mg/dL (0.0-0.2); BILIRUBIN,TOTAL 0.3 mg/dL (0.2-1.0); LIPASE 13 U/L (16-77); TOTAL PROTEIN, SERUM 6.2 g/dL (6.4-8.2)
[2024-11-19 21:59] LABS: ASPARTATE AMINOTRANSFERASE 13 U/L (15-37)
[2024-11-19] MEDS ORDERED: KETOROLAC TROMETHAMINE 30 MG INJ IM ONE (22:45)
[2024-11-19] MEDS ORDERED: KETOROLAC TROMETHAMINE 15 MG INJ ONE (23:00)
[2024-11-19] MEDS ORDERED: OXYCODONE HCL 5 MG TABLET ONE (23:00)
[2024-11-19 23:03] LABS: *BILIRUBIN,URIN NEGATIVE (NEGATIVE); *BLOOD, URINE NEGATIVE (NEGATIVE); *CLARITY,URINE CLEAR (CLEAR); *COLOR,URINE YELLOW (YELLOW); *KETONES,URINE NEGATIVE (NEGATIVE); *PROTEIN,URINE NEGATIVE (NEGATIVE); *UROBILINOGEN,URINE 0.2 E.U./dl (NORMAL); LEUKOCYTE ESTERASE ,URINE TRACE (NEGATIVE); NITRITE, URINE NEGATIVE (NEGATIVE); UGLUCOSE NEGATIVE (NEGATIVE)
[2024-11-19] MEDS: OXYCODONE HCL 5 MG TABLET PO ONE (23:10)
[2024-11-19 23:14] LABS: BACTERIA,URINE FEW /HPF (NONE SEEN); RBC,URINE NONE SEEN /HPF (0-3); SQUAMOUS EPITHELIAL CELL,UR FEW /HPF (NONE SEEN)
[2024-11-19] MEDS: KETOROLAC TROMETHAMINE 15 MG INJ IM ONE (23:21)
[2024-11-19 23:41] VITALS: BP 140/65; O2SAT 99
== END 2024-11-19 23:47 | disposition home or self-care (01) ==
LOC: ER 20:00
DX: R10.9 Unspecified abdominal pain (principal); R19.7 Diarrhea, unspecified; M54.50 Low back pain, unspecified; G89.29 Other chronic pain; E78.00 Pure hypercholesterolemia, unspecified; I11.0 Hypertensive heart disease with heart failure; I50.9 Heart failure, unspecified; K59.00 Constipation, unspecified; K64.4 Residual hemorrhoidal skin tags; K74.60 Unspecified cirrhosis of liver; Z79.899 Other long term (current) drug therapy; Z86.19 Personal history of other infectious and parasitic diseases; Z87.19 Personal history of other diseases of the digestive system; Z88.0 Allergy status to penicillin; Z88.1 Allergy status to other antibiotic agents; Z88.2 Allergy status to sulfonamides; Z60.2 Problems related to living alone
CPT/HCPCS: 36415; 72131; 83690; 84484; 85025; A4606; A4663; J1885